=== PATIENT | female | born 1995 | race Caucasian/White ===

== ENCOUNTER 2017-07-07 12:45 | Emergency (ER) | payer SELFPAY ==
[~2017-07-07] VITALS: Ht 149.9 cm; Wt 44.1 kg
[2017-07-07 12:52] VITALS: BP 110/54; PULSE 82; RESP 16; TEMP 98.5; O2SAT 98
[2017-07-07] MEDS ORDERED: SODIUM CHLOR 0.9% 1000 ML INJ 1,000 ML IV SCH (14:22)
[2017-07-07] MEDS ORDERED: ONDANSETRON HCL 4 MG/2 ML VIAL IVP ONE (14:30)
[2017-07-07] MEDS ORDERED: KETOROLAC TROMETHAMINE 30 MG/ML (IVP) VIAL IVP ONE (14:30)
[2017-07-07] MEDS ORDERED: SODIUM CHLORIDE 0.9% FLUSH 10 ML FLUSH IV FLUSH PRN (14:30)
--- NOTE | 2017-07-07 14:36 | PD ---
HPI Chief Complaint: Abdominal Pain Time Seen by Provider: 14:15 Travel History International Travel<30 days: No Contact w/Intl Traveler<30days: No Traveled to known affect area: No History of Present Illness HPI This is a 22 year old female who presents to the emergency department with lower abdominal pain, constant, moderate severity described as cramping with no associated fevers, chills, dysuria, diarrhea, or vaginal discharge. She says she has had intermittent vomiting and today she passed out from the pain. Her last menstrual cycle was 2 months ago but is typically irregular because she has an IUD. She has never had symptoms like this before. [facility] Past Medical History Medical History: Denies Significant Hx Tetanus Vaccination: < 5 Years Influenza Vaccination: No ?: Not LMP: 2 months/IUD Dilation and Curettage (D&C): Yes Past Surgical History Ear Surgery: Yes (Multiple) Tonsillectomy: Yes (& adenoids) Social History Alcohol Use: No Tobacco Use: Yes (1/2 PPD) Substance Use: No Allergies-Medications (Allergen,Severity, Reaction): Coded Allergies: No Known Allergies (Unverified , 07/07/17) Reported Meds & Prescriptions Reported Meds & Active Scripts Active No Active Prescriptions or Reported Medications Review of Systems Except as stated in HPI: all other systems reviewed are Neg Physical Exam Narrative GENERAL:Well appearing, no acute distress SKIN: Focused skin assessment warm and dry. HEAD: Atraumatic. Normocephalic. EYES: Pupils equal and round. No injection or drainage. ENT: Moist mucous membranes. Purulent drainage and dullness and scaring from the right tympanic membrane. NECK: Trachea midline. CARDIOVASCULAR: Regular rate and rhythm. No murmur appreciated. RESPIRATORY: Clear to auscultation. Breath sounds equal bilaterally. GASTROINTESTINAL: Abdomen soft, tender to palpation in the lower abdomen with guarding. MUSCULOSKELETAL: No obvious deformities. NEUROLOGICAL: Awake and alert. No obvious cranial nerve deficits. Moving all extremities. PSYCHIATRIC: Appropriate mood and affect; insight and judgment normal. Data Data Last Documented VS Vital Signs Date Time Temp Pulse Resp B/P (MAP) Pulse Ox O2 Delivery O2 Flow Rate FiO2 07/07/17 12:52 98.5 82 16 110/54 (72) 98 Room Air Orders Orders Complete Blood Count With Diff (07/07/17 14:22) Comprehensive Metabolic Panel (07/07/17 14:22) Urinalysis - C+S If Indicated (07/07/17 14:22) Iv Access Insert/Monitor (07/07/17 14:22) Ecg Monitoring (07/07/17 14:22) Oximetry (07/07/17 14:22) Ondansetron Inj (Zofran Inj) (07/07/17 14:30) Sodium Chlor 0.9% 1000 Ml Inj (Ns 1000 M (07/07/17 14:22) Sodium Chloride 0.9% Flush (Ns Flush) (07/07/17 14:30) Ketorolac Inj (Toradol Inj) (07/07/17 14:30) Ed Urine Pregnancytest Poc (07/07/17 14:22) Wet Prep Profile (07/07/17 14:22) Gc And Chlamydia Pcr (07/07/17 14:22) Us Pelvis Comp W Dop Transvag (07/07/17 ) Labs Laboratory Tests Test 07/07/17 15:30 MDM Medical Decision Making Medical Screen Exam Complete: Yes Emergency Medical Condition: Yes Interpretation(s) Afebrile, no tachycardia, normotensive Differential Diagnosis Pelvic inflammatory disease, urinary tract infection, IUD displacement, colitis , appendicitis Narrative Course This is a 22-year-old female who presents to the emergency department with lower abdominal discomfort that's been going on for several days associated with vomiting and one episode of syncope today. The patient was placed on a monitor and an IV was established. Labs will be obtained as well as a urinalysis. She is quite tender in the lower abdomen. I performed a pelvic exam which showed very short IUD strings. She had no cervical motion tenderness or adnexal tenderness and no discharge to suggest PID. Patient will be signed out to Dr. Yousif. If patient has a leukocytosis I would consider a CT scan to rule out appendicitis, although I have a very low suspicion for this. Otherwise if her ultrasound is reassuring and urinalysis is reassuring at think she can be discharged home. Scripts No Active Prescriptions or Reported Meds Abbey Hidalgo MD Jul 07, 2017 14:36
[2017-07-07 15:45] VITALS: O2SAT 98
[2017-07-07 15:48] LABS: BLOOD, URINE TRACE (NEG); GLUCOSE,URINE NEG (NEG); KETONE, URINE NEG (NEG); NITRITE,URINE NEG (NEG)
--- NOTE | 2017-07-07 15:52 | RADRPT ---
EXAM DATE/TIME: 07/07/2017 14:35 [place] COMPARISON: No previous studies available for comparison. INDICATIONS : Pelvic pain. MEDICAL HISTORY : IUD for 1 year. SURGICAL HISTORY : Tonsillectomy. Dilation and curettage. ENCOUNTER: Initial ACUITY: 1 day PAIN SCORE: 6/10 LOCATION: Bilateral pelvis MEASUREMENTS: UTERUS: 8.3 x 3.9 x 5.4 cm ENDOMETRIAL STRIPE: 6 mm RIGHT OVARY: 3.8 x 2.7 x 3.4 cm LEFT OVARY: 2.7 x 1.9 x 1.4 cm FINDINGS: UTERUS: The myometrium has homogeneous echotexture without mass. IUD is present within the endometrial canal . RIGHT OVARY: There is a simple cystic lesion in the right ovary measuring 3 cm. LEFT OVARY: Ovary contains no mass or significant cystic lesion. MISCELLANEOUS: No free fluid. CONCLUSION: 1. No acute finding is identified to explain the pelvic pain. IUD appears normally located in the end ometrial canal. 2. There is a dominant functional cyst/follicle in the right ovary measuring 3 cm. Isai Rivera MD on July 07, 2017 at 15:48 Board Certified Radiologist. This report was verified electronically.
[2017-07-07 15:56] LABS: AUTOMATED NEUTROPHIL # 6.5 TH/MM3 (1.8-7.7); BASOPHIL # 0.1 TH/MM3 (0-0.2); BASOPHIL % 0.5 % (0.0-2.0); EOSINOPHIL # 0.3 TH/MM3 (0-0.4); EOSINOPHIL % 2.9 % (0.0-4.0); HEMATOCRIT 40.3 % (35.0-46.0); HEMO FLAGS DIFF FINAL; LYMPHOCYTE # 2.7 TH/MM3 (1.0-4.8); MEAN CELL VOLUME 94.9 FL (80.0-100.0); MEAN CORPUSCULAR HEMOGLOBIN 31.2 PG (27.0-34.0); MEAN CORPUSCULAR HGB CONC 32.9 % (32.0-36.0); MONO % 9.1 % (0.0-8.0); NEUT % 62.5 % (16.0-70.0); PLATELET COUNT 501 TH/MM3 (150-450); RED BLOOD COUNT 4.24 MIL/MM3 (4.00-5.30); RED CELL DISTRIBUTION WIDTH 13.9 % (11.6-17.2); WHITE BLOOD COUNT 10.6 TH/MM3 (4.0-11.0)
[2017-07-07 16:02] LABS: MUCUS URINE FEW /lpf (OCC); URINE COLOR YELLOW (YELLW/STRAW)
[2017-07-07 16:03] LABS: BACTERIA, URINE FEW /hpf; RBC, URINE 0-3 /hpf (0-3)
[2017-07-07 16:04] LABS: COMMENT (UR) CULT NOT INDICATED; CULTURE IF INDICATED CULT NOT INDICATED
[2017-07-07 16:07] LABS: CHLORIDE 106 MEQ/L (98-107); SODIUM (NA) 140 MEQ/L (136-145)
[2017-07-07] MEDS ORDERED: MACR100C2 PO (16:11)
--- NOTE | 2017-07-07 16:11 | PD ---
Data Data Last Documented VS Vital Signs Date Time Temp Pulse Resp B/P (MAP) Pulse Ox O2 Delivery O2 Flow Rate FiO2 07/07/17 15:45 98 Room Air 07/07/17 12:52 98.5 82 16 Orders Orders Complete Blood Count With Diff (07/07/17 14:22) Comprehensive Metabolic Panel (07/07/17 14:22) Urinalysis - C+S If Indicated (07/07/17 14:22) Iv Access Insert/Monitor (07/07/17 14:22) Ecg Monitoring (07/07/17 14:22) Oximetry (07/07/17 14:22) Ondansetron Inj (Zofran Inj) (07/07/17 14:30) Sodium Chlor 0.9% 1000 Ml Inj (Ns 1000 M (07/07/17 14:22) Sodium Chloride 0.9% Flush (Ns Flush) (07/07/17 14:30) Ketorolac Inj (Toradol Inj) (07/07/17 14:30) Ed Urine Pregnancytest Poc (07/07/17 14:22) Wet Prep Profile (07/07/17 14:22) Gc And Chlamydia Pcr (07/07/17 14:22) Us Pelvis Comp W Dop Transvag (07/07/17 ) Labs Laboratory Tests Test 07/07/17 15:30 07/07/17 15:45 Urine Color YELLOW Urine Turbidity CLOUDY Urine pH 7.0 Urine Specific Red [place] 1.022 Urine Protein NEG mg/dL Urine Glucose (UA) NEG mg/dL Urine Ketones NEG mg/dL Urine Occult Blood TRACE Urine Nitrite NEG Urine Bilirubin NEG Urine Leukocyte Esterase SMALL Urine RBC 0-3 /hpf Urine WBC 6-8 /hpf Urine Squamous Epithelial Cells 6-8 /hpf Urine Amorphous Sediment MOD Urine Bacteria FEW /hpf Urine Mucus FEW /lpf Microscopic Urinalysis Comment CULT NOT INDICATED Clue Cells (Wet Prep) NONE SEEN Vaginal Trichomonas (Wet Prep) NONE SEEN Vaginal Yeast (Wet Prep) NONE SEEN White Blood Count 10.6 TH/MM3 Red Blood Count 4.24 MIL/MM3 Hemoglobin 13.3 GM/DL Hematocrit 40.3 % Mean Corpuscular Volume 94.9 FL Mean Corpuscular Hemoglobin 31.2 PG Mean Corpuscular Hemoglobin Concent 32.9 % Red Cell Distribution Width 13.9 % Platelet Count 501 TH/MM3 Mean Platelet Volume 6.9 FL Neutrophils (%) (Auto) 62.5 % Lymphocytes (%) (Auto) 25.0 % Monocytes (%) (Auto) 9.1 % Eosinophils (%) (Auto) 2.9 % Basophils (%) (Auto) 0.5 % Neutrophils # (Auto) 6.5 TH/MM3 Lymphocytes # (Auto) 2.7 TH/MM3 Monocytes # (Auto) 1.0 TH/MM3 Eosinophils # (Auto) 0.3 TH/MM3 Basophils # (Auto) 0.1 TH/MM3 CBC Comment DIFF FINAL Differential Comment Sodium Level 140 MEQ/L Potassium Level 4.0 MEQ/L Chloride Level 106 MEQ/L [facility] Supervised Visit with DEIRDRE: No Interpretation(s) White blood cell count of 10 62% neutrophils Urinalysis: Possible infection Wet prep is normal Last 24 hours Impressions Abdomen/Pelvis/Transvag US 07/07/17 0000 Signed Impressions: Service Date/Time: Friday, July 07, 2017 14:35 - CONCLUSION: 1. No acute finding is identified to explain the pelvic pain. IUD appears normally located in the endometrial canal. 2. There is a dominant functional cyst/follicle in the right ovary measuring 3 cm. Isai Rivera MD Differential Diagnosis Ectopic , pelvic inflammatory disease, urinary tract infection, ruptured ovarian cyst, appendicitis Narrative Course This is a 22-year-old female who presents to the emergency department with lower abdominal discomfort, and vomiting. She was placed on a monitored an IV was established. Labs are obtained which were reassuring. Urinalysis demonstrates a possible infection. A pelvic exam was performed which was unremarkable. A pelvic ultrasound was performed which demonstrates her IUD in normal position. I suspect her patient may be her discomfort may be related to a urinary tract infection. She'll be treated with antibiotics and can follow up with her primary care physician as an outpatient. Diagnosis Primary Impression: Urinary tract infection Qualified Codes: N30.00 - Acute cystitis without hematuria Patient Instructions: General Instructions Additional Instruction: If you develop severe or worsening abdominal pain, fever>100.4, persistent vomiting or inability to eat or drink return to the emergency department immediately. Follow up with your primary care physician if your symptoms are not improved. Med/Other Pt SpecificInfo: Prescription(s) given Scripts Nitrofurantoin Monohydrate Macrocrystals (Macrobid) 100 Mg Cap 100 MG PO BID for Infection for 7 Days, CAP 0 Refills Prov: Abbey Hidalgo MD 07/07/17 Disposition: 01 DISCHARGE HOME Condition: Stable Abbey Hidalgo MD Jul 07, 2017 16:11
[2017-07-07 16:12] LABS: ANION GAP 8 MEQ/L (5-15); BICARBONATE 25.7 MEQ/L (21.0-32.0)
[2017-07-07 16:13] LABS: BLOOD UREA NITROGEN 17 MG/DL (7-18)
[2017-07-07 16:16] LABS: AST (GOT) 18 U/L (15-37); GLOMERULAR FILTRATION RATE 116 ML/MIN (>89)
[2017-07-07 16:17] LABS: TOTAL BILIRUBIN ADULT 1.1 MG/DL (0.2-1.0)
[2017-07-07 16:19] LABS: ALKALINE PHOSPHATASE 54 U/L (45-117)
[2017-07-07] MEDS ORDERED: AMOX875T PO (16:20)
[2017-07-07 16:24] LABS: ALT (GPT) 24 U/L (10-53)
[2017-07-07 16:40] VITALS: BP 109/62; PULSE 64; RESP 16; O2SAT 100
[2017-07-07 19:17] LABS: CHLAMYDIA PCR NOT DETECTED (NOT DETECT); NEISSERIA PCR NOT DETECTED (NOT DETECT)
== END 2017-07-07 16:55 | disposition home or self-care (01) ==
LOC: PHED 12:45
DX: N30.00 Acute cystitis without hematuria (principal); F17.210 Nicotine dependence, cigarettes, uncomplicated; Z97.5 Presence of (intrauterine) contraceptive device
CPT/HCPCS: 76830; 76856; 80053; 81001; 84703; 85025; 87210; 87491; 87591; 93975; 96361; 96374; 96375; 99285; J1885; J2405; J7030